=== PATIENT | male | born 1945 | race African-American/Black ===

== ENCOUNTER → 2022-02-23 | Outpatient (CLI) | payer MEDICARE ==
--- NOTE | 2022-02-23 16:07 | RAD ---
Exam: XR [id number] 1-2 VIEWS History: Right knee pain Comparison: None. Findings: Osseous mineralization is normal. No acute fracture or dislocation. Moderate tricompartmental joint s pace narrowing and osteophyte formation. No effusion. No focal soft tissue swelling. Impression: 1. 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 Electronically signed by: Salvador Parker MD (02/23/2022 4:05 PM) [id number]
== END ==
LOC: RAD 13:55
PROVIDERS: ATTEND Internal Medicine
DX: M17.11 Unilateral primary osteoarthritis, right knee (principal); M25.761 Osteophyte, right knee; M25.861 Other specified joint disorders, right knee
CPT/HCPCS: 73560